=== PATIENT | male | born 1955 | race Hispanic/Latino ===

== ENCOUNTER 2018-05-29 08:49 | Emergency (ER) | payer OTHER ==
[2018-05-29 08:51] VITALS: BMI 28.1
[2018-05-29 08:52] VITALS: RESP 20; O2SAT 97
[2018-05-29] MEDS ORDERED: Tdap Vaccine 0.5 ml Vial (10-64 yrs) IM ONE ×2 (09:54→10:08)
--- NOTE | 2018-05-29 10:22 | ED PDOC ---
HPI: Trauma/Fall - HPI Time Seen by Provider: 05/29/18 09:12 Chief Complaint (Nursing): Trauma Chief Complaint (Provider): Trauma History Per: Patient History/Exam Limitations: no limitations Injury Occurred (Timing): Just Before Arrival Additional Complaint(s): Edmond Greenberg is a 63 year old male with a past medical history of diabetes, who presents to the emergency department after sustaining an injury prior to arrival. Patient states he was going down the steps when he missed the last step and fell and hit the front of his head. He states he was able to catch himself with his two hands. Patient is not on blood thinner and is unsure of his last tetanus. He denies any loss of consciousness, nausea, vomiting, headache, or extremity pain. PMD: Chris Acuna Past Medical History Reviewed: Historical Data, Nursing Documentation, Vital Signs Vital Signs: Last Vital Signs Temp 98 F 05/29/18 08:51 Pulse 86 05/29/18 08:51 Resp 20 05/29/18 08:51 BP 172/85 H 05/29/18 08:51 Pulse Ox 97 05/29/18 08:51 - Medical History PMH: Diabetes - Surgical History Surgical History: No Surg Hx - Family History Family History: States: Unknown Family Hx - Immunization History Hx Tetanus Toxoid Vaccination: No (cant recall) - Home Medications Home Medications: Ambulatory Orders Medication Instructions Recorded Ibuprofen [Motrin] 600 mg PO Q6H PRN #20 tab 05/29/18 - Allergies Allergies/Adverse Reactions: Allergies Allergy/AdvReac Type Severity Reaction Status Date / Time Penicillins Allergy RASH Verified 05/29/18 09:09 Review of Systems ROS Statement: Except As Marked, All Systems Reviewed And Found Negative Gastrointestinal: Negative for: Nausea, Vomiting Musculoskeletal: Negative for: Other (extremiy pain ) Neurological: Negative for: Headache, Other (LOC) Physical Exam - Reviewed Nursing Documentation Reviewed: Yes Vital Signs Reviewed: Yes - Physical Exam Appears: Positive for: Non-toxic, No Acute Distress Head Exam: Positive for: ATRAUMATIC (skin avulstion on right forehead; 3 cm by 4 cm superficial skin avulsion; minimal bleeding), NORMOCEPHALIC Eye Exam: Positive for: Normal appearance, EOMI, PERRL Neck: Positive for: Normal (no C-spine tenderness), Painless ROM, Supple Cardiovascular/Chest: Positive for: Regular Rate, Rhythm. Negative for: Murmur Respiratory: Positive for: Normal Breath Sounds. Negative for: Respiratory Distress Back: Positive for: Normal Inspection. Negative for: L CVA Tenderness, R CVA Tenderness, Vertebral Tenderness Extremity: Positive for: Normal ROM. Negative for: Other (wrist or hand tenderness ) - ECG O2 Sat by Pulse Oximetry: 97 (RA) Pulse Ox Interpretation: Normal Medical Decision Making Medical Decision Making: Initial Time: 09:57 Initial Impression: Trauma Initial Plan: --Head CT without contrast --Adacel 10-64 years 0.5 ml IM --Glucose, blood POC Sterile dressing was applied along with bacitracin and irrigated with normal saline by ER Manager [employer]. Remainder of the skin was placed over abrasion. 10:[address] FINDINGS: HEMORRHAGE: No intracranial hemorrhage. BRAIN: Interval mild increase in atrophy throughout the cerebrum. Good corticomedullary differentiation is preserved with no definite parenchymal edema appreciated above or below the tentorium. Posterior fossa contents appear unremarkable. No suspicious extra-axial collection appreciated. VENTRICLES: Unremarkable. No hydrocephalus. CALVARIUM: No destructive bony lesion or displaced fracture identified including through the skullbase. PARANASAL SINUSES: Unremarkable as visualized. No significant inflammatory changes. MASTOID AIR CELLS: Unremarkable as visualized. No inflammatory changes. OTHER FINDINGS: None. IMPRESSION: No definite acute intracranial findings as discussed above. Follow-up CT or MRI can be utilized as clinically warranted. Marginal increase in limited age-related degenerative change manifest by cerebral atrophy alone. Examination otherwise appears stable. Scribe Attestation: Documented by Britton Portillo, acting as a scribe for Laly Morley MD. Provider Scribe Attestation: All medical record entries made by the Scribe were at my direction and personally dictated by me. I have reviewed the chart and agree that the record accurately reflects my personal performance of the history, physical exam, medical decision making, and the department course for this patient. I have also personally directed, reviewed, and agree with the discharge instructions and disposition. Disposition - Clinical Impression Clinical Impression: Head injury, Forehead abrasion - Disposition Referrals: Chris Acuna MD [Family Provider] - Disposition Time: 13:34 Condition: GOOD Prescriptions: Ibuprofen [Motrin] 600 mg PO Q6H PRN #20 tab PRN Reason: Pain, Moderate (4-7) Instructions: Skin Abrasions, Closed Head Injury Forms: [facility] (Bahamian)
--- NOTE | 2018-05-29 10:59 | CT ---
Date of service: 05/29/2018 PROCEDURE: CT HEAD WITHOUT CONTRAST. HISTORY: Head injury COMPARISON: Noncontrast head CT 03/22/2012. TECHNIQUE: Axial computed tomography images were obtained through the head/brain without intravenous contrast. Radiation dose: Total exam DLP = 905.56 mGy-cm. This CT exam was performed using one or more of the following dose reduction techniques: Automated exposure control, adjustment of the mA and/or kV according to patient size, and/or use of iterative reconstruction technique. FINDINGS: HEMORRHAGE: No intracranial hemorrhage. BRAIN: Interval mild increase in atrophy throughout the cerebrum. Good corticomedullary differentiation is preserved with no definite parenchymal edema appreciated above or below the tentorium. Posterior fossa contents appear unremarkable. No suspicious extra-axial collection appreciated. VENTRICLES: Unremarkable. No hydrocephalus. CALVARIUM: No destructive bony lesion or displaced fracture identified including through the skullbase. PARANASAL SINUSES: Unremarkable as visualized. No significant inflammatory changes. MASTOID AIR CELLS: Unremarkable as visualized. No inflammatory changes. OTHER FINDINGS: None. IMPRESSION: No definite acute intracranial findings as discussed above. Follow-up CT or MRI can be utilized as clinically warranted. Marginal increase in limited age-related degenerative change manifest by cerebral atrophy alone. Examination otherwise appears stable.
[2018-05-30 00:20] VITALS: BP 147/76; PULSE 80; TEMP 97
== END 2018-05-29 13:34 | disposition home or self-care (01) ==
LOC: H.ER 08:49
DX: S09.90XA Unspecified injury of head, initial encounter (principal); S00.81XA Abrasion of other part of head, initial encounter; W10.9XXA Fall (on) (from) unspecified stairs and steps, initial encounter; Y99.0 Civilian activity done for income or pay; E11.9 Type 2 diabetes mellitus without complications; Z88.0 Allergy status to penicillin